=== PATIENT | female | born 1975 | race Caucasian/White ===

== ENCOUNTER → 2017-01-15 | Outpatient (CLI) | payer OTHER ==
[~2017-01-15] MED LIST: CLINDAMYCIN HC300 MG PO; FLEXERIL10 MG PO; LORTAB 7.51 TAB 7.5/ PO; NO MEDICATIONS; VOLTAREN75 MG PO
--- NOTE | ~2017-01-15 | CR63 ---
[facility] A Service of [facility] RADIOLOGY TEXT RESULTS PATIENT: KYLAH ALEJO [facility] : 73 UNIT #: [id number] AGE: [address]: Hector Martinez MD SEX: F ORDER DR: [id number] [place] [id number] O MR#: [id number] Acc #: [id number] NAME: KYLAH ALEJO. : 1975 SEX: F STUDY DATE/TIME: 01/15/2017 8:55 UNIT: SRAD ROOM: STUDY DESCRIPTION: CR Chest 2 View Attending Physician: Hector Martinez M.D. Referring Physician: Hector Martinez M.D. Ordering Physician: Hector Martinez M.D. Primary Care Physician: Hector Martinez M.D. MEDICAL IMAGING REPORT This report is preliminary unless electronic signature is present. 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 Smoker. COMPARISON STUDIES 01/11/2010 FINDINGS Two views of the chest demonstrates a focal right perihilar opacity. Mass versus infiltrate not excluded. Further characterization with CT chest with contrast recommended. Left lung appears clear. No pleural effusion or pneumothorax. Heart size and mediastinum within normal limits. Pulmonary vasculature is unremarkable. IMPRESSION Focal right perihilar opacity. Mass versus infiltrate not excluded and further characterization with contrast enhanced chest CT recommended. Dictated by... Arsh Cruz M.D. THIS IS AN ELECTRONICALLY VERIFIED REPORT Arsh Cruz M.D. at 01/16/2017 4:56 PM ALE/donal TD: 01/15/2017 22:45 JOB #: [id number] MEDICAL IMAGING REPORT [facility] A Service of [facility] RADIOLOGY TEXT RESULTS PATIENT: KYLAH ALEJO LOCATION: [facility] : 73 UNIT #: [id number] AGE: [address]: Hector Martinez MD SEX: F ORDER DR: Page 1 of 1
== END | disposition home or self-care (01) ==
LOC: SRAD 08:43
DX: R76.11 Nonspecific reaction to tuberculin skin test without active tuberculosis (principal); R93.8 Abnormal findings on diagnostic imaging of other specified body structures
CPT/HCPCS: 71020

== ENCOUNTER → 2017-01-29 | Outpatient (CLI) | payer OTHER ==
--- NOTE | ~2017-01-29 | CT55 ---
[facility] A Service of [facility] RADIOLOGY TEXT RESULTS PATIENT: KYLAH ALEJO LOCATION: [facility] : 73 UNIT #: [id number] AGE: [address]: Hector Martinez MD SEX: F ORDER DR: [id number] [facility] [address] [place], [place] [address] [id number] O MR#: [id number] Acc #: [id number] NAME: KYLAH ALEJO. : 1975 SEX: F STUDY DATE/TIME: 01/29/2017 9:36 UNIT: [facility] ROOM: STUDY DESCRIPTION: CT Chest W Con Attending Physician: Hector Martinez M.D. Referring Physician: Hector Martinez M.D. Ordering Physician: Hector Martinez M.D. Primary Care Physician: Mary Lord Aprn MEDICAL IMAGING REPORT This report is preliminary unless electronic signature is present EXAM CT of the chest with contrast. INDICATIONS Follow up a pulmonary nodule found on a chest x-ray. TECHNIQUE CT of the chest was performed following the administration of IV contrast. Coronal and sagittal reformatted images were obtained. This CT exam was performed with one or more of the following radiation dose reduction techniques: automatic exposure control, adjustment of mA and/or kV according to patient size, and iterative reconstruction. COMPARISON Comparison is made with a chest x-ray from 01/15/2017. FINDINGS There is mild interstitial thickening in the lungs with areas of ground glass opacification. This may indicate pulmonary edema. It could also be infectious or inflammatory. Correlate clinically. The nodular density in the chest x-ray corresponds to a large calcified granuloma. However, there are other nodules in the lungs which are not calcified. There is a 1 cm nodule in the medial right lower lobe on image 93 adjacent to the pleural surface. There is a micronodule adjacent to the pleural surface right lower lobe image 63. 9 mm nodule in the left upper lobe on image 57. Micronodule in the lingula image 66. There is a 1 cm pleural-based nodule in the posterior right upper lobe on image 43. There is a nodule in the right lobe of the thyroid gland measuring about 1.5 cm. There are multiple enlarged mediastinal and bilateral hilar lymph nodes. Index right paratracheal mediastinal lymph node is 1.7 cm. There is no evidence of pleural effusion. [facility] A Service of [facility] RADIOLOGY TEXT RESULTS PATIENT: KYLAH ALEJO LOCATION: [facility] : 73 UNIT #: [id number] AGE: [address]: Hector Martinez MD SEX: F ORDER DR: Limited imaging in the upper abdomen shows a Lap-Band. Cholecystectomy clips. The bone windows are unremarkable. IMPRESSION 1. There are multiple bilateral pulmonary nodules. The largest measure about 1 cm as described above and the 2 largest nodules are located in the right lung and there is a 9 mm nodule in the left upper lobe. 2. There are enlarged mediastinal and hilar lymph nodes as described above. 3. The etiology and chronicity of the nodules and the lymphadenopathy is uncertain. The differential diagnosis includes a benign infectious or inflammatory process or possibly malignancy. If there are any old chest CTs available, these would be helpful for comparison purposes. Otherwise, further evaluation with either a short-interval followup chest CT in 3 months or a PET/CT is recommended. 4. 1.5 cm right lobe thyroid nodule. This could be evaluated with thyroid ultrasound, if not previously performed. 5. Bilateral interstitial thickening with ground glass opacification or opacities in the lungs. Findings are more prevalent in the upper zones. This may represent pulmonary edema or it could be infectious or inflammatory. Follow up to clearing is suggested. Dictated by... Tony Cornejo M.D. THIS IS AN ELECTRONICALLY VERIFIED REPORT Tony Cornejo M.D. at 02/04/2017 11:21 AM CABRERA/olivia TD: 01/30/2017 15:50 JOB #: [id number] MEDICAL IMAGING REPORT Page 1 of 1 COPY
== END | disposition home or self-care (01) ==
LOC: CCAT 08:57
DX: R91.1 Solitary pulmonary nodule (principal)
CPT/HCPCS: 71260; Q9967